=== PATIENT | male | born 1965 | race Caucasian/White ===

== ENCOUNTER → 2021-12-22 10:15 | Outpatient (CLI) | payer BC, SELFPAY ==
[2021-12-22 19:02] LABS: SARS-CoV-2 RNA PCR Negative
== END ==
PROVIDERS: PCP Internal Medicine; Visit Provider Internal Medicine
DX: R68.89 Other general symptoms and signs (principal); Z20.822 Contact with and (suspected) exposure to COVID-19
CPT/HCPCS: C9803; U0003; U0005

== ENCOUNTER 2021-12-23 13:06 | Outpatient (CLI) | payer BC, SELFPAY ==
--- NOTE | ~2021-12-23 | XR_ITS ---
EXAMINATION: XR chest 2V EXAM DATE: 12/23/2021 13:30 INDICATION: J06.9 - Acute upper respiratory, cough, SOB . TECHNIQUE: Frontal and lateral projections of the chest obtained and reviewed. Comparison is made to prior examination from 07/21/2014. FINDINGS: Small to moderate amount of bilateral airspace disease. Could be COVID pneumonia given keyla earance and community prevalence. Other infectious etiology also possible. No pneumothorax or pleural effusion. Cardiomediastinal silhouette is normal. IMPRESSION: Ill-defined small to moderate bilateral airspace disease could be COVID 19 or other infec tion. Reviewed, dictated and finalized at location A. PING AND RECEIVING OPERATOR IMPRESSION: Ill-defined small to moderate bilateral airspace disease could be C OVID 19 or other infection.
== END 2021-12-23 13:07 | disposition home or self-care (01) ==
PROVIDERS: PCP Internal Medicine; Visit Provider Internal Medicine
DX: J06.9 Acute upper respiratory infection, unspecified (principal); R91.8 Other nonspecific abnormal finding of lung field
CPT/HCPCS: 71046